=== PATIENT | female | born 1930 | race Caucasian/White ===

== ENCOUNTER → 2016-07-22 | Outpatient (CLI) | payer OTHER ==
[~2016-07-22] MED LIST: ACET-1256 PO; CETI10TA84 PO; CLTP PO; IPRA0.06 NAE; LOSA1TAB38 PO; METO-596 PO; MULT-190 PO; RANI150T3 PO; RIVA1TAB4 PO; TRIA3AER NAE
[2016-07-22 13:40] LABS: BASO % 0.2 %; BASO ABS # 0.01 K/uL (0-0.2); COMPLETE YES; EOS % 2.7 %; IG% 0.2 %; LYMPH % 24.5 %; LYMPH ABS # 1.19 K/uL (1.2-3.4); MEAN CELL VOLUME 96.2 fL (80-100); MEAN CORPUSCULAR HEMOGLOBIN 32.1 pg (25-34); MEAN CORPUSCULAR HGB CONC 33.4 g/dl (32-36); MEAN PLATELET VOLUME 11.1 fL (7.4-10.4); MONO % 13.6 %; NEUT % 58.8 %; PLATELET COUNT 158 K/uL (130-400); RED BLOOD COUNT 3.64 M/uL (4.2-5.4); WHITE BLOOD COUNT 4.85 K/uL (4.8-10.8)
[2016-07-22 13:58] LABS: BLOOD UREA NITROGEN 20 mg/dl (7-18); BUN/CREATININE RATIO 23.1 (10-20); CALCIUM 9.2 mg/dl (8.5-10.1); CARBON DIOXIDE 24 mmol/L (21-32); CHLORIDE 100 mmol/L (98-107); CREATININE 0.87 mg/dl (0.60-1.20); GLUCOSE 73 mg/dl (70-99); POTASSIUM 3.9 mmol/L (3.5-5.1); SODIUM 135 mmol/L (136-145)
== END | disposition home or self-care (01) ==
LOC: C.LABBC 10:04
PROVIDERS: ATTEND Internal Medicine Geriatric Medicine
DX: I10 Essential (primary) hypertension (principal); E87.1 Hypo-osmolality and hyponatremia; E55.9 Vitamin D deficiency, unspecified; I48.2 Chronic atrial fibrillation; D64.9 Anemia, unspecified